=== PATIENT | female | born 1995 | race Caucasian/White ===

== ENCOUNTER 2016-10-06 15:21 | Outpatient (CLI) | payer OTHER | END 2016-10-06 23:00 | disposition home or self-care (01) | LOC: LAB SRH 15:21 | DX: F41.9 Anxiety disorder, unspecified (principal); N92.6 Irregular menstruation, unspecified; R07.9 Chest pain, unspecified; R11.0 Nausea | CPT/HCPCS: 90074; 90100; 90197; 90648; 91286; 93140; 95059 ==